=== PATIENT | male | born 1960 ===

== ENCOUNTER 2024-08-16 14:50 | Emergency (ER) | payer MEDICARE ==
[2024-08-16 15:46] LABS: BASOPHILS ABSOLUTE AUTO 0.02 K/uL (0.00-0.20); BASOPHILS PERCENT AUTO 0.2 % (0.0-2.0); EOSINOPHILS ABSOLUTE AUTO 0.13 K/uL (0.00-0.50); EOSINOPHILS PERCENT AUTO 1.5 % (0.0-5.0); HEMATOCRIT 37.2 % (39.0-49.0); HEMOGLOBIN 11.9 g/dL (13.1-16.8); LYMPHOCYTES ABSOLUTE AUTO 2.38 K/uL (0.50-3.50); LYMPHOCYTES PERCENT AUTO 27.9 % (10.0-50.0); MEAN CORPUSCULAR HEMOGLOBIN 30.7 pg (28.2-33.3); MEAN CORPUSCULAR VOLUME 96.1 fL (84.0-98.0); MONOCYTES ABSOLUTE AUTO 0.74 K/uL (0.00-1.00); MONOCYTES PERCENT AUTO 8.7 % (2.0-14.0); NEUTROPHILS ABSOLUTE AUTO 5.27 K/uL (1.40-7.00); NEUTROPHILS PERCENT AUTO 61.7 % (45.0-80.0); PLATELET COUNT,PLT 245 K/uL (150-350); RED BLOOD CELL COUNT 3.87 M/uL (4.33-5.41); RED CELL DISTRIBUTION WIDTH 14.1 % (11.2-14.1); WHITE BLOOD CELL COUNT,WBC 8.5 K/uL (4.0-10.2)
[2024-08-16 16:16] LABS: ALANINE AMINOTRANSFERASE,ALT 17 U/L (12-78); ALKALINE PHOSPHATASE 101 IU/L (46-116); ANION GAP 10.5 meq/L (7-15); ASPARTATE AMNIOTRANSFERASE,AST 16 U/L (15-37); BILIRUBIN TOTAL 0.3 mg/dL (0.2-1.0); BLOOD UREA NITROGEN,BUN 16 mg/dL (7-18); CALCIUM 8.7 mg/dL (8.5-10.1); CARBON DIOXIDE,CO2 24.5 mmol/L (21.0-32.0); CHLORIDE,CL 105 mmol/L (98-107); ESTIMATED GFR 76 mL/min (>=60); GLUCOSE RANDOM 83 mg/dL (70-99); MAGNESIUM 1.7 mg/dL (1.8-2.4); POTASSIUM,K 4.4 mmol/L (3.5-5.1); PROTEIN TOTAL,TP 6.4 g/dL (6.4-8.2); SODIUM,NA 140 mmol/L (136-145)
[2024-08-16] MEDS: oxyCODONE 5 MG Tab PO ONE (16:49)
== END 2024-08-16 19:05 ==
LOC: SUPCPDRO 14:50 → LL.ED 14:50
DX: G95.9 Disease of spinal cord, unspecified (principal); G89.29 Other chronic pain; I10 Essential (primary) hypertension; J44.9 Chronic obstructive pulmonary disease, unspecified; Z79.01 Long term (current) use of anticoagulants; Z79.899 Other long term (current) drug therapy
CPT/HCPCS: 36415; 80053; 83735; 85025; 99284; A9270-GY